=== PATIENT | female | born 1965 | race Caucasian/White ===

== ENCOUNTER → 2024-03-28 | Outpatient (CLI) | payer OTHER ==
[~2024-03-28] MED LIST: AMLO10 PO; ASPI81CH PO; CLONIDINE PO; CLOP75 PO; LIPITOR80 MG PO; METFORMIN HCL500 M3 PO; NEBIVOLOL HCL20 MG PO; OZEMPIC2 MG/0.75 SC
[2024-03-28 18:33] LABS: BASOPHILS ABSOLUTE AUTO 0.05 K/mm3 (0.00-0.23); BASOPHILS PERCENT AUTO 1 % (0-2); EOSINOPHILS ABSOLUTE AUTO 0.09 K/mm3 (0.00-0.68); EOSINOPHILS PERCENT AUTO 1 % (0-6); Hematocrit 42.9 % (33.0-51.0); Hemoglobin 14.5 g/dL (11.5-16.0); IMMATURE GRAN ABSOLUTE AUTO 0.05 K/mm3 (0.00-0.10); IMMATURE GRAN PERCENT AUTO 1 % (0-1); LYMPHOCYTES ABSOLUTE AUTO 2.24 K/mm3 (0.84-5.20); LYMPHOCYTES PERCENT AUTO 22 % (21-46); MONOCYTES ABSOLUTE AUTO 1.08 K/mm3 (0.16-1.47); MONOCYTES PERCENT AUTO 11 % (4-13); Mean Corpuscular HGB Conc 33.8 g/dL (31.5-36.5); Mean Corpuscular Volume 92 fL (80-100); Mean Platelet Volume 12.1 fL (9.1-12.4); NEUTROPHILS ABSOLUTE AUTO 6.55 K/mm3 (1.96-9.15); NEUTROPHILS PERCENT AUTO 65 % (41-73); Platelet Count 219 K/mm3 (150-400); Red Blood Cell Count 4.68 M/mm3 (3.80-5.20); White Blood Cell Count 10.06 K/mm3 (4.00-11.30)
[2024-03-28 19:27] LABS: Albumin, Blood 3.3 g/dL (3.4-5.0); Albumin/Globulin Ratio 0.9 (0.8-1.8); Bilirubin, Total 1.1 mg/dL (0.1-1.0); Bun/Creatinine Ratio 16.9 (12.0-20.0); Calcium, Blood 8.7 mg/dL (8.5-10.1); Creatinine, Blood 0.59 mg/dL (0.40-1.00); Globulin, Blood 3.7 g/dL (2.2-4.0); Potassium, Blood 3.7 mmol/L (3.5-5.5)
== END ==
LOC: LAB SHORT 17:33 → LAB 17:33
PROVIDERS: Hospitalist
DX: R35.0 Frequency of micturition (principal); I10 Essential (primary) hypertension; R82.2 Biliuria
CPT/HCPCS: 80053; 85025; 85651; 87086

== ENCOUNTER 2024-04-10 12:29 | Inpatient (IN) | payer OTHER ==
[~2024-04-10] VITALS: Ht 172.7 cm; Wt 115.0 kg
[2024-04-10 13:12] LABS: BASOPHILS ABSOLUTE AUTO 0.07 K/mm3 (0.00-0.23); BASOPHILS PERCENT AUTO 0 % (0-2); EOSINOPHILS ABSOLUTE AUTO 0.03 K/mm3 (0.00-0.68); EOSINOPHILS PERCENT AUTO 0 % (0-6); Hematocrit 38.5 % (33.0-51.0); Hemoglobin 12.9 g/dL (11.5-16.0); IMMATURE GRAN ABSOLUTE AUTO 0.27 K/mm3 (0.00-0.10); IMMATURE GRAN PERCENT AUTO 1 % (0-1); LYMPHOCYTES ABSOLUTE AUTO 1.73 K/mm3 (0.84-5.20); LYMPHOCYTES PERCENT AUTO 7 % (21-46); MONOCYTES ABSOLUTE AUTO 1.64 K/mm3 (0.16-1.47); MONOCYTES PERCENT AUTO 7 % (4-13); Mean Corpuscular HGB 30.4 pg (26.0-34.0); Mean Corpuscular HGB Conc 33.5 g/dL (31.5-36.5); Mean Corpuscular Volume 91 fL (80-100); NEUTROPHILS ABSOLUTE AUTO 19.69 K/mm3 (1.96-9.15); NEUTROPHILS PERCENT AUTO 84 % (41-73); Platelet Count 348 K/mm3 (150-400); RDW Coefficient Variation 12.9 % (11.7-14.2); RDW Standard Deviation 42.7 fL (35.1-46.3); Red Blood Cell Count 4.24 M/mm3 (3.80-5.20); White Blood Cell Count 23.43 K/mm3 (4.00-11.30)
[2024-04-10 13:43] LABS: Albumin, Blood 2.4 g/dL (3.4-5.0); Albumin/Globulin Ratio 0.4 (0.8-1.8); Bilirubin, Total 1.2 mg/dL (0.1-1.0); Bun/Creatinine Ratio 27.8 (12.0-20.0); Creatinine, Blood 0.83 mg/dL (0.40-1.00); Globulin, Blood 5.8 g/dL (2.2-4.0); Thyroid Stimulating Hormone 1.38 uIU/mL (0.360-4.800); Total Protein, Blood 8.2 g/dL (6.4-8.2)
[2024-04-10] MEDS ORDERED: Acetaminophen 500 MG Tab PO ONE (15:10)
[2024-04-10] MEDS ORDERED: OxyCODONE HCL 5 MG TAB PO ONE (15:10)
[2024-04-10] MEDS ORDERED: Ketorolac Tromethamine 30mg Vial IV ONE (15:10)
[2024-04-10] MEDS ORDERED: Lidocaine 4% 1 Patch TOP ONE (15:10)
[2024-04-10] MEDS ORDERED: Methocarbamol 500 MG Tab PO ONE (15:10)
[2024-04-10] MEDS ORDERED: Dexamethasone Sod Phos 10 MG/ML 1ML VIAL IV ONE (15:10)
[2024-04-10] MEDS ORDERED: Ondansetron HCl 2 MG / ML 2ML Vial IV ONE (15:10)
[2024-04-10] MEDS ORDERED: Gabapentin 300 MG Cap PO ONE (15:10)
[2024-04-10 15:37] LABS: Influenza A, PCR NEGATIVE (NEGATIVE); Influenza B, PCR NEGATIVE (NEGATIVE); Resp Syncytial Virus, PCR NEGATIVE (NEGATIVE); SARS-Cov-2 (COVID-19) PCR, MMC NEGATIVE (NEGATIVE)
[2024-04-10] MEDS ORDERED: Robaxin750 MG PO (16:59)
[2024-04-10] MEDS ORDERED: METPRE4DP PO (16:59)
[2024-04-10] MEDS ORDERED: GABA300 PO (16:59)
[2024-04-10] MEDS ORDERED: Voltaren100 GM TOP (17:00)
[2024-04-10 17:19] LABS: Source, Urine Clean Catch
[2024-04-10 17:32] LABS: Appearance, Urine Hazy (Clear); Blood, Urine 1+ (Neg); Color, Urine Amber (P-Yellow); Glucose Qualitative, Urine Neg (Neg); Ketones, Urine 2+ (Neg); Leukocyte Esterase, Urine 1+ (Neg); Nitrite, Urine Neg (Neg); Protein, Urine 3+ (Neg); Urobilinogen, Urine 3+ (Normal)
[2024-04-10 17:38] LABS: Bilirubin, Urine 1+ (Neg)
[2024-04-10 17:40] LABS: Bacteria Many /hpf; Squamous Epithelial Cells Many /hpf (Few)
[2024-04-10 17:41] LABS: Hyaline Casts 0-2 /lpf (0-2); Mucus Light (0-Heavy); Renal Epithelial Rare /hpf (0-Rare)
[2024-04-10] MEDS ORDERED: Ampicillin Sod/Sulbactam Sod 3 GM in NS 100 ML IV ONE (18:30)
[2024-04-10] MEDS ORDERED: CefTRIAXone Sodium 1,000 MG in NS 100 ML IV ONE ×2 (18:30→21:45)
[2024-04-10] MEDS ORDERED: MetroNIDAZOLE 500MG/NS 100 ml 100 ML IV ONE (18:30)
[2024-04-10] MEDS ORDERED: HYDROmorphone HCl/Pf 1MG SYR IV ONE (19:15)
[2024-04-10] MEDS ORDERED: FentaNYL Citrate 50 MCG/ML 2 ML Injection IV PRN (21:25)
[2024-04-10] MEDS ORDERED: Metoclopramide HCl 5MG / ML 2ML Vial IV PRN (21:30)
[2024-04-10] MEDS ORDERED: Ondansetron HCl 2 MG / ML 2ML Vial IV PRN (21:30)
[2024-04-10] MEDS ORDERED: NS 1,000 ML IV SCH (21:30)
[2024-04-10 22:27] VITALS: BP 170/93
[2024-04-10] MEDS ORDERED: CLON.2 PO (22:57)
[2024-04-10] MEDS ORDERED: BENA20 PO (22:58)
[2024-04-10] MEDS ORDERED: CloNIDine 0.1 MG Tab PO ONE (23:15)
[2024-04-10 23:31] VITALS: BP 165/88
[2024-04-11] VITALS (7 sets, daily range): BP systolic 140–180; BP diastolic 83–103
[2024-04-11] MEDS ORDERED: MetroNIDAZOLE 500MG/NS 100 ml 100 ML IV SCH
[2024-04-11 00:09] LABS: Albumin, Blood 2.2 g/dL (3.4-5.0); Albumin/Globulin Ratio 0.4 (0.8-1.8); Bilirubin, Total 0.7 mg/dL (0.1-1.0); Bun/Creatinine Ratio 38.3 (12.0-20.0); Calcium, Blood 8.5 mg/dL (8.5-10.1); Creatinine, Blood 0.76 mg/dL (0.40-1.00); Globulin, Blood 5.6 g/dL (2.2-4.0); Potassium, Blood 4.5 mmol/L (3.5-5.5); Total Protein, Blood 7.8 g/dL (6.4-8.2)
[2024-04-11 05:17] LABS: BASOPHILS ABSOLUTE AUTO 0.05 K/mm3 (0.00-0.23); BASOPHILS PERCENT AUTO 0 % (0-2); EOSINOPHILS PERCENT AUTO 0 % (0-6); Hematocrit 39.7 % (33.0-51.0); IMMATURE GRAN ABSOLUTE AUTO 0.26 K/mm3 (0.00-0.10); IMMATURE GRAN PERCENT AUTO 1 % (0-1); LYMPHOCYTES ABSOLUTE AUTO 1.28 K/mm3 (0.84-5.20); LYMPHOCYTES PERCENT AUTO 6 % (21-46); MONOCYTES ABSOLUTE AUTO 0.44 K/mm3 (0.16-1.47); MONOCYTES PERCENT AUTO 2 % (4-13); Mean Corpuscular HGB 30.4 pg (26.0-34.0); Mean Corpuscular HGB Conc 32.7 g/dL (31.5-36.5); Mean Corpuscular Volume 93 fL (80-100); NEUTROPHILS ABSOLUTE AUTO 18.07 K/mm3 (1.96-9.15); NEUTROPHILS PERCENT AUTO 90 % (41-73); Platelet Count 338 K/mm3 (150-400); RDW Coefficient Variation 12.8 % (11.7-14.2); RDW Standard Deviation 43.8 fL (35.1-46.3); Red Blood Cell Count 4.27 M/mm3 (3.80-5.20)
[2024-04-11 05:30] LABS: International Normalized Ratio 1.1; Prothrombin Time Results 11.7 Sec (9.7-11.5)
[2024-04-11 06:17] LABS: Albumin, Blood 2.2 g/dL (3.4-5.0); Albumin/Globulin Ratio 0.4 (0.8-1.8); Bilirubin, Total 0.6 mg/dL (0.1-1.0); Bun/Creatinine Ratio 38.7 (12.0-20.0); Calcium, Blood 8.4 mg/dL (8.5-10.1); Creatinine, Blood 0.67 mg/dL (0.40-1.00); Globulin, Blood 5.5 g/dL (2.2-4.0); Magnesium, Blood 2.4 mg/dL (1.6-2.4); Potassium, Blood 4.3 mmol/L (3.5-5.5); Total Protein, Blood 7.7 g/dL (6.4-8.2)
[2024-04-11] MEDS ORDERED: Carvedilol 25 MG Tab PO SCH (08:00)
[2024-04-11] MEDS ORDERED: Lisinopril 20 MG Tab PO SCH (09:00)
[2024-04-11] MEDS ORDERED: CloNIDine 0.1 MG Tab PO SCH (09:00)
[2024-04-11] MEDS ORDERED: CefTRIAXone Sodium 2,000 MG in NS 100 ML IV SCH (09:00)
[2024-04-11] MEDS ORDERED: HYDROmorphone HCl 2 MG Tab PO PRN (09:35)
[2024-04-11] MEDS ORDERED: HYDROmorphone HCl/Pf 1MG SYR IV PRN (13:40)
[2024-04-11] MEDS ORDERED: Insulin Human Lispro 100 Units/ML 3ML Syringe SC SCH ×2 (14:00)
[2024-04-11] MEDS ORDERED: Thiamine HCl 100 MG Tab PO SCH (16:46)
[2024-04-11] MEDS ORDERED: Multivitamins/Minerals 1 Tab PO SCH ×2 (16:50→17:00)
[2024-04-11] MEDS ORDERED: Simethicone 80 MG Chew PO PRN (20:00)
[2024-04-11] MEDS ORDERED: Protein Supplement 30 ML UD PO SCH (21:00)
[2024-04-12] MEDS ORDERED: Naloxone HCl 1MG / ML 2ML SYR IV PRN (00:20)
[2024-04-12] MEDS ORDERED: Thiamine HCl 100 MG Tab PO SCH (09:00)
[2024-04-13 08:38] LABS: HEPATITIS B SURFACE ANTIBODY 12.34 IU/L
[2024-04-13 11:18] LABS: HBV CORE ANTIBODIES,TOTAL Negative (Negative)
[2024-04-13 22:09] LABS: HBV QNT BY NAAT (IU/ML) Not Detected; HBV QNT BY NAAT (LOG IU/ML) Not Detected; HBV QNT BY NAAT INTERP Not Detected (Not Detected)
== END 2024-04-11 23:41 | disposition short-term general hospital (02) | DRG 871 ==
LOC: ER 12:29 → PCU 20:49
PROVIDERS: Emergency Medicine; Nurse Practitioner Acute Care; ADMIT Internal Medicine
DX: A41.9 Sepsis, unspecified organism (principal); K75.0 Abscess of liver; I10 Essential (primary) hypertension; K59.09 Other constipation; K80.20 Calculus of gallbladder without cholecystitis without obstruction; E66.01 Morbid (severe) obesity due to excess calories; E11.65 Type 2 diabetes mellitus with hyperglycemia; E78.5 Hyperlipidemia, unspecified; Z79.84 Long term (current) use of oral hypoglycemic drugs; Z79.82 Long term (current) use of aspirin; Z87.891 Personal history of nicotine dependence; Z88.8 Allergy status to other drugs, medicaments and biological substances; Z86.73 Personal history of transient ischemic attack (TIA), and cerebral infarction without residual deficits; Z79.02 Long term (current) use of antithrombotics/antiplatelets; Z79.85 Long-term (current) use of injectable non-insulin antidiabetic drugs; Z68.39 Body mass index [BMI] 39.0-39.9, adult
CPT/HCPCS: 0241U; 36415; 74177; 76705; 80053; 81001; 82947; 83036; 83605; 83690; 83735; 84443; 85025; 85610; 85730; 87086; 94762; 96365-59; 96367; 96375; 99284-25; A9270; J0295; J0696; J1100; J1170; J1885; J2405; J2765; J3010; J7030; Q9967

== ENCOUNTER → 2025-06-19 | Outpatient (CLI) | payer OTHER ==
[~2025-06-19] MED LIST changes: +BENA20 PO; +CLON.2 PO; +GABA300 PO; +METPRE4DP PO; +Robaxin750 MG PO; +Voltaren100 GM TOP
[2025-06-22 09:56] LABS: RHEUMATOID FACTOR <10 IU/mL (0-14)
[2025-06-23 22:24] LABS: ANTINUCLEAR AB (ANA),HEP-2,IGG <1:80 (<1:80)
== END | disposition home or self-care (01) ==
LOC: LAB 19:32 → LAB SHORT 19:32
PROVIDERS: Nurse Practitioner Family
DX: L40.9 Psoriasis, unspecified (principal); M25.50 Pain in unspecified joint
CPT/HCPCS: 86039; 86140; 86431

== ENCOUNTER → 2025-09-25 | Outpatient (CLI) | payer OTHER ==
[2025-09-25 13:54] LABS: BASOPHILS ABSOLUTE AUTO 0.08 K/mm3 (0.00-0.23); BASOPHILS PERCENT AUTO 1 % (0-2); EOSINOPHILS ABSOLUTE AUTO 0.19 K/mm3 (0.00-0.68); EOSINOPHILS PERCENT AUTO 1 % (0-6); Hematocrit 44.9 % (33.0-51.0); Hemoglobin 14.9 g/dL (11.5-16.0); IMMATURE GRAN ABSOLUTE AUTO 0.08 K/mm3 (0.00-0.10); IMMATURE GRAN PERCENT AUTO 1 % (0-1); LYMPHOCYTES ABSOLUTE AUTO 2.64 K/mm3 (0.84-5.20); LYMPHOCYTES PERCENT AUTO 20 % (21-46); MONOCYTES ABSOLUTE AUTO 0.99 K/mm3 (0.16-1.47); MONOCYTES PERCENT AUTO 7 % (4-13); Mean Corpuscular HGB Conc 33.2 g/dL (31.5-36.5); Mean Corpuscular Volume 93 fL (80-100); NEUTROPHILS ABSOLUTE AUTO 9.50 K/mm3 (1.96-9.15); NEUTROPHILS PERCENT AUTO 71 % (41-73); NRBC ABSOLUTE 0.00 K/mm3 (0.00-0.02); NRBC Auto 0.0 /100 WBC (0.0-0.2); Platelet Count 250 K/mm3 (150-400); RDW Coefficient Variation 13.6 % (11.7-14.2); RDW Standard Deviation 46.4 fL (35.1-46.3)
[2025-09-25 14:22] LABS: Alanine Aminotransfer (ALT/SGP 26 U/L (12-78); Albumin, Blood 3.6 g/dL (3.4-5.0); Albumin/Globulin Ratio 0.9 (0.8-1.8); Anion Gap 11 mmol/L (3-11); Aspartate Aminotrans (AST/SGOT 16 U/L (12-37); Bilirubin, Total 1.6 mg/dL (0.1-1.0); Blood Urea Nitrogen 13 mg/dL (8-24); CHOL/HDL RATIO 3.9; CO2, Blood 27 mmol/L (21-32); Calcium, Blood 9.2 mg/dL (8.5-10.1); Chloride, Blood 101 mmol/L (98-108); Cholesterol 135 mg/dL (50-200); Creatinine, Blood 0.63 mg/dL (0.40-1.00); Globulin, Blood 4.0 g/dL (2.2-4.0); Glucose, Blood 199 mg/dL (70-99); HDL Cholesterol 35 mg/dL (>39); LDL/HDL RATIO 1.4; Low Density Lipoprotein Chol 49 mg/dL (0-110); Potassium, Blood 3.9 mmol/L (3.5-5.5); Sodium, Blood 135 mmol/L (136-145); Total Protein, Blood 7.6 g/dL (6.4-8.2); Triglycerides 253 mg/dL (30-160); Very Low Density Lipoprot Chol 50 mg/dL (6-32)
== END ==
LOC: LAB 12:26 → LAB SHORT 12:26
PROVIDERS: Nurse Practitioner Family
DX: I10 Essential (primary) hypertension (principal); E78.2 Mixed hyperlipidemia
CPT/HCPCS: 80053; 80061; 85025